=== PATIENT | female | born 1975 | race Caucasian/White ===

== ENCOUNTER → 2024-02-23 16:27 | Outpatient (REF) | payer OTHER, SELFPAY | LOC: RAD 16:27 | PROVIDERS: ATTENDING PHYSICIAN Family Medicine | DX: D50.8 Other iron deficiency anemias (principal); R60.9 Edema, unspecified; N92.1 Excessive and frequent menstruation with irregular cycle; M79.89 Other specified soft tissue disorders; R14.0 Abdominal distension (gaseous) | CPT/HCPCS: 74177; Q9967 ==

== ENCOUNTER → 2024-03-23 15:58 | Outpatient (REF) | payer OTHER, SELFPAY | LOC: RAD 15:58 | PROVIDERS: ATTENDING PHYSICIAN Obstetrics & Gynecology; FAMILY PHYSICIAN Family Medicine | DX: N92.0 Excessive and frequent menstruation with regular cycle (principal) | CPT/HCPCS: 76830; 76856 ==

== ENCOUNTER → 2024-05-05 08:25 | Outpatient (REF) | payer OTHER, SELFPAY | LOC: WDC 08:25 | PROVIDERS: ATTENDING PHYSICIAN Obstetrics & Gynecology; FAMILY PHYSICIAN Family Medicine | DX: Z12.31 Encounter for screening mammogram for malignant neoplasm of breast (principal) | CPT/HCPCS: 77063; 77067 ==

== ENCOUNTER 2024-12-13 13:53 | Outpatient (RCR) | payer OTHER, SELFPAY ==
[2024-11-29 14:40] VITALS: BP 112/61
[2024-11-29] MEDS: VENOFER 110 MG IV (14:42)
[2024-11-29 16:02] VITALS: BP 111/59
[2024-12-01 11:40] VITALS: BP 121/65
[2024-12-01] MEDS: VENOFER 110 MG IV (12:02)
[2024-12-06 11:36] VITALS: BP 110/66
[2024-12-06] MEDS: VENOFER 110 MG IV (11:54)
[2024-12-06 13:20] VITALS: BP 106/55
[2024-12-08 08:36] VITALS: BP 117/66
[2024-12-08] MEDS: VENOFER 110 MG IV (08:51)
[2024-12-08 10:03] VITALS: BP 115/66
[2024-12-13 14:15] VITALS: BP 120/71
[2024-12-13] MEDS: VENOFER 110 MG IV (14:30)
[2024-12-13 15:45] VITALS: BP 129/64
== END 2024-12-14 10:59 | disposition home or self-care (01) ==
LOC: OID 13:53
PROVIDERS: ATTENDING PHYSICIAN Family Medicine
DX: D50.8 Other iron deficiency anemias (principal)
CPT/HCPCS: 96365; J1756

== ENCOUNTER → 2025-01-09 13:40 | Outpatient (REF) | payer OTHER, SELFPAY | LOC: HWRAD 13:40 | PROVIDERS: ATTENDING PHYSICIAN Family Medicine; FAMILY PHYSICIAN Family Medicine | DX: R87.9 Unspecified abnormal finding in specimens from female genital organs (principal) | CPT/HCPCS: 76830; 76856 ==